=== PATIENT | male | born 1950 | race Caucasian/White ===

== ENCOUNTER 2016-09-24 08:21 | Emergency (ER) | payer MEDICARE ==
[~2016-09-24] VITALS: Ht 175.3 cm; Wt 86.4 kg
[~2016-09-24 08:21] MED LIST: ALBU18HF IH; AMB10 PO; ASPI-653 PO; COR625 PO; FLUT5POW4 MC; GLU500 PO; MELO15TA14 PO; NAPR220C11 PO; OMEP20TA86 PO; SMV40T PO; VICODIN PO; [UNRECOGNIZED DRUG - CODE] PO; [UNRECOGNIZED DRUG - CODE] PO
[2016-09-24 08:25] VITALS: BP 141/95; PULSE 74; RESP 12; O2SAT 97
--- NOTE | 2016-09-24 09:00 | ED.REPORT ---
HPI-Trauma Minor / Fall Date of Service Sep 24, 2016 ED Provider: Thang Parker MD Patient is a 66 year old male with a history of hypertension and diabetes who presents to the ED due to a fall 3 days ago. The patient fell off a boat and went to his primary care physician where he was diagnosed with a left radial head fracture. He feels like he wasn't completely checked out and might have a concussion or a fracture in his wrist or scapula. The patient also complains of back pain. Patient states that when was laying down 2 days ago he began to feel dizzy. He denies losing consciousness after the incident, neck pain or vomiting. The patient reports that he normally takes two hydrocodone a day for pain chronically and daily ASA. Nursing Notes Stated Complaint: SEVERE FALL ON SATURDAY Chief Complaint: General Complaint Nursing Notes Reviewed: Yes Allergies: Coded Allergies: No Known Allergies (Verified Allergy, 05/06/12) Scheduled Albuterol-Expunged Drug, Do Not Renew! (Albuterol-Expunged Drug, Do Not Renew!) 18 Gm Hfa.aer.ad 2 PUFF IH DAILYP Aspirin-Expunged Drug, Do Not Renew! (Lo-Dose Aspirin-Expunged Drug, Do Not Renew!) 81 Mg Tablet.dr 81 MG PO DAILY INSTRUCTED TO STOP Carvedilol-Expunged Drug, Do Not Renew! (Carvedilol-Expunged Drug, Do Not Renew! ) 6.25 Mg Tablet 6.25 MG PO BID Fluticasone Prop-Expunged Drug, Do Not Renew! (Fluticasone Prop-Expunged Drug, Do Not Renew!) 1 Gm Powder 1 GM MC PRN Hydrocod/APAP-Expunged, Do Not Renew! (VICODIN 7.5/325-Expunged Drug, Do Not Renew) 1 Each Tablet 1 TAB PO Q4HP Meloxicam-Expunged Drug, Do Not Renew! (Mobic-Expunged Drug, Do Not Renew!) 15 Mg Tablet 15 MG PO DAILY INSTRUCTED TO STOP Metformin-Expunged Drug, Do Not Renew! (Metformin-Expunged Drug, Do Not Renew!) 500 Mg Tablet 1,000 MG PO BID TAKE WITH EVENING MEAL Naproxen Sod-Expunged Drug, Do Not Renew!! (Aleve-Expunged Drug,Do Not Renew!) 220 Mg Capsule 2 TAB PO BID INSTRUCTED TO STOP Omeprazole-Expunged Drug, Do Not Renew! (Omeprazole-Expunged Drug, Do Not Renew! ) 20 Mg Tablet.dr 20 MG PO DAILY Simvastatin-Expunged Drug, Choose New Med! (Simvastatin-Expunged Drug, Choose New Med!) 40 Mg Tablet 40 MG PO HS INPATIENT MAX DOSE 40 MG Terazosin-Expunged Drug, Do Not Renew! (Hytrin-Expunged Drug, Do Not Renew!) 1 Mg Cap 1 MG PO DAILY Triamterene/HCTZ-Expunged Drug, Do Not Renew! (OBFXUTV-63-Xpamzpme Drug, Do Not Renew!) 1 Ea Cap 1 CAP PO DAILY General Time Seen by MD: 08:59 Chief Complaint Fall Hx Obtained From: Patient Arrived By: Walk-in Onset Occurred: 3 days ago Symptom Duration: Since onset Caused by: Fall from height... Location: Back Head Wrist left Quality: Painful Recent Healthcare: No recent hospitalization, Recent doctor visit Similar Sx Previous: Yes Past Medical History Past Medical History Reports: Diabetes mellitus, Hypertension Past Surgical History cervical fusion Social History Other Social History: Local resident Ambulatory Status Independent Review of Systems Respiratory: Denies: Non-productive cough, Shortness of breath Musculoskeletal: Reports: Back pain, Extremity pain (left wrist), Denies: Extremity swelling, Neck pain Neurologic: Reports: Dizziness Complete sys rev & neg: except as marked. GI: Denies: Abdominal pain Allergy / Immune: Denies: Itching Physical Exam Initial Vital Signs Vital Signs (First) Date Time Temp Pulse Resp B/P Pulse Ox O2 Delivery O2 Flow Rate FiO2 09/24/16 08:25 36.4 74 12 141/95 97 Room Air Initial VS: Reviewed General/Constitutional: Awake, Alert, No acute distress Neck: Atraumatic, Supple, Full range of motion Head / Eyes: Normocephalic, PERRL, EOMI abrasion to left side of forehead Respiratory / Chest: Atraumatic, No respiratory distress Abdomen: Atraumatic, Soft, Non-tender UPPER EXTREMITIES: limited range of motion of the left arm due to pain anatomic snuff box tenderness on the left Lower Extremity / Pelvis / MS: Atraumatic, Full range of motion Skin: Atraumatic, Color NL, No rash, Warm, Dry Neurologic: Oriented X3, Speech NL, No motor deficits, No sensory deficits Psychiatric: Affect NL, Mood NL Interpretation & Diagnostics X-Ray Chest Interpretation Chest Xray Interpretation: IMPRESSION: Mild left basilar consolidation probably represents atelectasis. Contusion or pneumonia may also have this appearance. No pneumothorax. Dictated by: Rasta Tsai M.D. on 09/24/2016 at 9:14 Approved by: Rasta Tsai M.D. on 09/24/2016 at 9:16 View: Portable, 1 view Interpretation / Wet Read by: Interpret - Radiologist X-Ray Interpretation Xray Interpretation: IMPRESSION: 1. No fracture or dislocation. If clinical concern persists for an occult fracture, recommend a repeat study in 7-10 days. Dictated by: José Beltran M.D. on 09/24/2016 at 10:15 Approved by: José Beltran M.D. on 09/24/2016 at 10:18 X-Ray Ordered: Wrist left Interpretation / Wet Read by: Interpret - Radiologist CT Head Interpretation IMPRESSION: 1. No acute intracranial abnormality. Dictated by: José Beltran M.D. on 09/24/2016 at 9:54 Approved by: José Beltran M.D. on 09/24/2016 at 9:56 Interpretation / Wet Read by: Interpret - Radiologist Procedures Splint Application - Fx Mgt Time: 11:08 Procedure Performed by: Reworker, Under my direct supervis Precise Anatomic Location: left arm posterior splint and thumb spika splint Type of Immobilization: Ortho-glass, Sling, Long arm Definitive Fracture Care: Sling, Splint Post-Procedure / Complications: Cap refill normal, Post splint vascular nl, Post splint neuro nl, Condition improved, Tolerated procedure well, Patient stable Re-Eval/Medical Decision Re-Evaluation/Progress : Time of Eval: 10:33 Re-Evaluation/Progress Note: Discussed results and plan for discharge. The patient understands and agrees to the plan for discharge. All questions were addressed. Counseled Regarding: Diagnosis, Lab results, Need for follow-up, When/why to return to ED Discharge & Departure Impression: Primary Impression: Fall Encounter type: initial encounter Qualified Code: W19.XXXA - Unspecified fall, initial encounter Additional Impressions: Contusion of left wrist Encounter type: initial encounter Qualified Code: S60.212A - Contusion of left wrist, initial encounter Radial head fracture Encounter type: initial encounter Fracture type: closed Fracture alignment : nondisplaced Laterality: left Qualified Code: S52.125A - Nondisplaced fracture of head of left radius, initial encounter for closed fracture Contusion of left shoulder Encounter type: initial encounter Qualified Code: S40.012A - Contusion of left shoulder, initial encounter Forehead abrasion Encounter type: initial encounter Qualified Code: S00.81XA - Abrasion of other part of head, initial encounter Concussion Encounter type: initial encounter Loss of consciousness presence/duration: without LOC Qualified Code: S06.0X0A - Concussion without loss of consciousness, initial encounter Disposition: Home Discharge Condition All VS Reviewed: Yes Condition: Stable Patient Instructions: Concussion (ED), Splint Care (ED) Additional Instructions: Thank you for trusting us with your care today. Your labs and X-rays were reassuring, though we did confirm that you have a minimally displaced radial head fracture. I am concerned about the wrist. The x-ray does not show a fracture, the nature of her pain indicates that we treat U as if you have a navicular fracture until we prove that you do not. Take Tylenol or ibuprofen for pain. You can continue to take your hydrocodone/APAP for more significant pain as needed. Call Dr. Ramirez today to schedule an appointment for later this week. Return to the emergency department if you develop any new or worsening symptoms including weakness, numbness, tingling or increasing pain. If the splint seems too tight, please unwrap it and rewrap it more loosely. Referrals: Richard Ribeiro MD (PCP) David Ramirez Attestation Portions of this note were transcribed by Elis Youssef. I, Dr. Parker personally performed the history, physical exam and medical decision-making; I reviewed and confirmed the accuracy of the information in the transcribed note. Signed by: [Angy first and last name]Angy, 09/24/16 and 1110 copies to: Richard Ribeiro MD; Daivd Ramirez Kirk H MD Sep 24, 2016 09:00 Ashley Youssef Sep 24, 2016 09:04
--- NOTE | 2016-09-24 09:58 | DRSVH ---
PROCEDURE: CT BRAIN WITHOUT CONTRAST ([id number]) INDICATIONS: trauma TECHNIQUE: Noncontrast 4.5 mm thick angled axial sections acquired from the foramen magnum to the vertex, with c oronal reformats. COMPARISON: None. FINDINGS: Image quality: Excellent. CSF spaces: Basal cisterns are patent. No extra-axial fluid collections. Ventricles are normal in size and shape. Brain: No intracranial hemorrhage, mass, or mass effect. Mckeon-white matter interface is preserved. Skull and face: Calvarium and visualized facial bones are intact, without suspicious lesions. Sinuses: Visualized sinuses and mastoids are clear. IMPRESSION: 1. No acute intracranial abnormality. Dictated by: José Beltran M.D. on 09/24/2016 at 9:54 Approved by: José Beltran M.D. on 09/24/2016 at 9:56
--- NOTE | 2016-09-24 10:17 | DRSVH ---
PROCEDURE: X-RAY CHEST, TWO VIEWS ([id number]) INDICATIONS: trauma TECHNIQUE: 2 views of the chest were acquired. COMPARISON: None. FINDINGS: Surgical changes and devices: Postoperative changes involving lower cervical spine are incidentally n oted. Lungs and pleura: There is mild atelectasis versus scarring at the left lung base, best appreciated o n the lateral view. No lobar consolidation, effusion, or pneumothorax is identified. Mediastinum: Mediastinal contours are normal. Heart size is normal. Bones and chest wall: No suspicious bony abnormalities. Soft tissues appear unremarkable. IMPRESSION: Mild left basilar consolidation probably represents atelectasis. Contusion or pneumonia may also have this appearance. No pneumothorax. Dictated by: Rasta Tsai M.D. on 09/24/2016 at 9:14 Approved by: Rasta Tsai M.D. on 09/24/2016 at 9:16
--- NOTE | 2016-09-24 10:20 | DRSVH ---
PROCEDURE: X-RAY LEFT WRIST COMPLETE, MINIMUM THREE VIEWS ([id number]) INDICATIONS: trauma TECHNIQUE: 4 views of the wrist were acquired. COMPARISON: None. FINDINGS: Bones: No fractures or dislocations. No suspicious bony lesions. Scaphoid view: The scaphoid appears intact. Soft tissues: No suspicious soft tissue calcifications. IMPRESSION: 1. No fracture or dislocation. If clinical concern persists for an occult fracture, recommend a repeat study in 7-10 days. Dictated by: José Beltran M.D. on 09/24/2016 at 10:15 Approved by: José Beltran M.D. on 09/24/2016 at 10:18
[2016-09-24 11:23] VITALS: BP 152/99; PULSE 68; RESP 16; O2SAT 93
== END 2016-09-24 11:24 | disposition home or self-care (01) ==
LOC: SED 08:21
DX: S52.125A Nondisplaced fracture of head of left radius, initial encounter for closed fracture (principal); S06.0X0A Concussion without loss of consciousness, initial encounter; S60.212A Contusion of left wrist, initial encounter; S40.012A Contusion of left shoulder, initial encounter; S00.81XA Abrasion of other part of head, initial encounter; W17.89XA Other fall from one level to another, initial encounter; Y93.89 Activity, other specified; Y99.8 Other external cause status; Y92.9 Unspecified place or not applicable; I10 Essential (primary) hypertension; E11.9 Type 2 diabetes mellitus without complications; Z98.1 Arthrodesis status; Z79.82 Long term (current) use of aspirin; Z79.51 Long term (current) use of inhaled steroids; Z79.84 Long term (current) use of oral hypoglycemic drugs